=== PATIENT | male | born 1980 | race Caucasian/White ===

== ENCOUNTER 2021-07-02 19:47 | Emergency (ER) | payer SELFPAY ==
[~2021-07-02] VITALS: Ht 172.7 cm; Wt 79.0 kg
[2021-07-02 20:04] VITALS: BP 182/100
== END 2021-07-02 21:18 | disposition left against medical advice (07) ==
LOC: ER 19:47
DX: Z53.21 Procedure and treatment not carried out due to patient leaving prior to being seen by health care provider (principal); E11.9 Type 2 diabetes mellitus without complications; I10 Essential (primary) hypertension